=== PATIENT | female | born 1980 | race African-American/Black ===

== ENCOUNTER 2019-05-06 12:28 | Emergency (ER) | payer OTHER, SELFPAY ==
[2019-05-06 12:37] VITALS: BP 114/69; PULSE 77; RESP 18; TEMP 37.1; O2SAT 100
--- NOTE | 2019-05-06 12:47 | ED.GENADULT ---
HPI - General Adult General Chief complaint: Upper Respiratory Infection Stated complaint: Sore throat Time Seen by Provider: 05/06/19 12:48 Source: patient Mode of arrival: ambulatory Limitations: no limitations History of Present Illness HPI narrative: 38-year-old female patient presents to the [facility] with complaints of a sore throat that started today. Patient states she did have a little bit of nausea that started yesterday. Patient denies any fevers, ear pain, runny nose or stuffy nose. Denies any coughing, chest pain, shortness of breath, abdominal pain or diarrhea. Patient denies any vomiting. Patient states that she did share a soda with 1 of her friends yesterday at work and her friend did come up positive for strep today. Patient states that since she started having sore throat suddenly today she wanted to come in and get tested. Related Data Home Medications Medication Instructions Recorded Confirmed norethindrone acetate [Aygestin] 5 mg DAILY 05/06/19 05/06/19 Allergies Allergy/AdvReac Type Severity Reaction Status Date / Time No Known Allergies Allergy Unknown Unverified 05/06/19 12:52 Review of Systems Review of Systems: Narrative: CONSTITUTIONAL: Denies fever, chills, or sweats. EYES: Denies visual changes, redness, or discharge. ENT: Denies rhinorrhea, congestion, positive sore throat, denies otalgia. CARDIOVASCULAR: Denies chest pain, palpitations, or edema. RESPIRATORY: Denies cough or dyspnea. GASTROINTESTINAL: Denies abdominal pain, nausea, vomiting, or diarrhea. GENITOURINARY: Denies dysuria or hematuria. SKIN: Denies rash or itching. MUSCULOSKELETAL: Denies back pain, joint pain, or myalgia. NEUROLOGIC: Denies headache, numbness, or weakness. PSYCHIATRIC: Denies anxiety or depression. PMFSH Social History Social History Gender identity (if verbalized by the patient): Female Comments At the time of my signature I agree with nursing past medical history, surgical, social, and family history. There is no relevant family history pertinent to the presenting complaint. Exam Narrative: Exam Narrative: GENERAL: Well-appearing, well-nourished, and in no acute distress. HEAD: Normocephalic, atraumatic. EYES: PERRLA and EOMI. ENT: Nares clear, no rhinorrhea or epistaxis. Mucous membranes moist. Posterior pharynx with slight erythema but no tonsil enlargement no exudates or lesions present. Bilateral TMs are clear with no erythema or foreign bodies in the canal. NECK: Supple. No lymphadenopathy CHEST: Clear to auscultation. No respiratory distress. HEART: Regular rate and rhythm. No murmur heard. Normal peripheral pulses. ABDOMEN: Soft, nontender, nondistended, normal active bowel sounds. EXTREMITIES: Normal range of motion. No edema. SKIN: Warm, dry, no rash. NEURO: No focal deficits. Alert and oriented x3. Course Reevaluation(s) Reevaluation #1: Notify patient she is negative today for strep. Discussed with her that she can continue treating her symptoms with warm salt water gargles, hot tea and honey may take Tylenol ibuprofen as needed for the pain. Discussed with patient that we will send her throat swab off to the lab for further testing if it does come back positive in the next day or [address] call and place her on antibiotics at that time. Patient verbalized understanding denies any other questions or concerns at this time. Date: 05/06/19 Time: 12:58 Vital Signs Vital signs: Vital signs reviewed. Medical Decision Making Differential Diagnosis Differential Diagnosis: Differential diagnosis: Viral pharyngitis, pharyngitis, group A strep, infectious mononucleosis, gonococcal pharyngitis, exudative pharyngitis, oral candidiasis. Chronic allergies, postnasal drip, GERD, abscess formation, but glottitis, retropharyngeal abscess formation, or airway obstruction. May care for patient is to go ahead and swab her for strep today. I will
== END 2019-05-06 13:00 | disposition home or self-care (01) ==
PROVIDERS: Emergency Provider Nurse Practitioner Family
DX: J02.9 Acute pharyngitis, unspecified (principal)
CPT/HCPCS: 87081; 87880; 99213; G0463

== ENCOUNTER 2019-08-25 10:28 | Outpatient (CLI) | payer OTHER, SELFPAY ==
--- NOTE | ~2019-08-25 | MM_ITS ---
EXAMINATION: MM screening willian BI w alfred HISTORY: Screening mammogram TECHNIQUE: Craniocaudal and mediolateral oblique 3-D tomosynthesis images were obtained and synthetic 2-D images were generated. Bilateral rotated lateral cc views. ....CAD analysis was submitted and in terpreted. COMPARISON: 07/12/2014 bilateral digital screening mammogram BREAST PARENCHYMAL COMPOSITION: The breasts are heterogeneously dense, which may obscure small masses . FINDINGS: There is no evidence of suspicious mass, calcification, or architectural distortion to sugg est malignancy in either breast. There has been no suspicious interval change. IMPRESSION: 1. No mammographic evidence of malignancy. 2. Recommend routine screening mammography in one year. BI-RADS Category 1: Negative Reviewed, dictated and finalized at location A.
== END 2019-08-25 10:29 | disposition home or self-care (01) ==
PROVIDERS: Visit Provider Obstetrics & Gynecology
DX: Z12.31 Encounter for screening mammogram for malignant neoplasm of breast (principal)
CPT/HCPCS: 77063; 77067

== ENCOUNTER 2020-05-02 17:00 | Outpatient (RCR) | payer OTHER, SELFPAY ==
--- NOTE | 2020-04-02 14:53 | PTOPEVAL ---
PHYSICAL THERAPY EVALUATION Thank you for referring Gee Solorio to [facility].? Gee was evaluated for the diagnosis of left leg radiculopathy. The patient is scheduled to be seen for therapy?2x/week for 4 weeks. Please review, sign, date and return this plan of care VANI. I agree with and certify that the following plan of care is medically necessary. Referring Physician Date Attending Provider: Christiane Duckworth, *PT Outpatient Evaluation Start: 04/02/20 13:17 Freq: Status: Active Protocol: Document 04/02/20 13:30 MLV (Rec: 04/02/20 14:42 MLV [id number]) Assessment Status Evaluation Evaluation Information Problem Diagnosis left leg radicular pain/ sciatica Onset January 2020 Cause excessive sitting at different job Additional Evaluation Detail Patient had pain for about 1-2 years back in 2014, never treated and pain went away on its own. The patient has had no treatment for problem. The patient began with pain again in December and now unable to sleep or sit correctly. 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 The pain is at the back of her left leg and is severe. The patient cannot lay with her leg straight and cannot sit straight in a chair. The patient has gained about 14lbs in less than a year. The patient has little to no back pain with leg pain. Pain Assessment Timing of Pain Assessment Assessment Pain Scale Pain Scale Used Numeric (1 - 10) Self Report Pain Assessment Left Leg(s) Reported Pain Level 2 Pain Description Sharp,Shooting Radicular Pain Location posterior leg to calf Pain Frequency Acute Greatest Pain Intensity 10 Pain Aggravating Factors Prolonged Position,Sitting, Supine Pain Score Pain Score 2: Self Report Interventions Used Interventions Used By Clinicians Education,Electrical Stimulation,Exercise,Heat Pain Relief Interventions Used By Position Change Patient Cervical and Lumbar ROM Lumbar ROM Reason Not Measured WNL/Left,WNL/Right
--- NOTE | 2020-04-12 11:15 | PCPTNOTE ---
Patient did not show up for scheduled appointment this date. Called and spoke to patient, she stated she couldn't fine her schedule and might call and forgot.
--- NOTE | 2020-04-25 10:17 | PCPTNOTE ---
Pt called and canceled appointment this date due to being called into work. Will continue per POC.
--- NOTE | 2020-04-30 09:56 | PCPTNOTE ---
Pt no-showed for appointment today at 9:30 am. Called Pt, Pt answered and stated she forgot about appointment. Reminded Pt of upcoming appointment on May 02 at 17:00.
--- NOTE | 2020-05-02 17:43 | PTOPEVAL ---
PHYSICAL THERAPY DISCHARGE SUMMARY Thank you for referring Gee Solorio to [facility].? The patient has been seen 7 visits for the dx of LBP/left leg radiculopathy. Goals have been met-D/C PT. Please review, sign, date and return this plan of care. I agree with and certify that the following plan of care is medically necessary. Referring Physician Date Attending Provider: Christaine Duckworth, *PT Outpatient Discharge Start: 04/02/20 13:17 Freq: Status: Active Protocol: Document 05/02/20 16:54 MLV (Rec: 05/02/20 17:40 MLV [id number]) Assessment Status Discharge Outpatient Past Medical History Past Medical History No Past Medical/Surgical History Patient/Family Denies Significant Past Medical/ Surgical History Source of Past Medical History Patient Evaluation Information Problem Diagnosis left leg radicular pain/ sciatica Onset January 2020 Cause excessive sitting at different job Additional Evaluation Detail Patient reports more than 50% better with left leg pain for frequency and currently does not have leg pain. Patient reports sitting is what aggravates the pain. Patient reports no pain with HEP. The back pain occurs with standing activities and sitting relieves the pain. The patient uses heat for relief at home. Pain Assessment Timing of Pain Assessment Timing of Pain Assessment Assessment Pain Scale Pain Scale Used Numeric (1 - 10) Self Report Pain Assessment Left Leg(s) Reported Pain Level 0 Pain Score Pain Score 0: Self Report Palpation Assessment Palpation Palpation tightness improved 50-75% for back and buttocks Special Test-Spine Lumbar Spine Special Tests Straight Leg Raise Test Negative Right,Negative Left PT Clinical Summary Mrs. Sloorio has been seen 6 visits for progressive exercises and modalities. The patient has improved in all aspects of therapy with goals met. The patient is I with continuing exercises and heat at home for pain management. No further skilled PT needed
== END 2020-05-03 08:54 | disposition home or self-care (01) ==
LOC: ANHPT 17:00
PROVIDERS: PCP Family Medicine; Visit Provider Family Medicine
DX: M54.32 Sciatica, left side (principal)
CPT/HCPCS: 97014; 97110; 97140; 97161; G0283

== ENCOUNTER 2020-09-16 09:22 | Emergency (ER) | payer OTHER, SELFPAY ==
--- NOTE | ~2020-09-16 | XR_ITS ---
EXAMINATION: XR chest 2V DATE: 09/16/2020 10:03 INDICATION: Productive cough TECHNIQUE: PA and lateral views of the chest are obtained. COMPARISON: None available FINDINGS: The lungs are free of acute opacities. There is no pleural effusion or pneumothorax. The ca rdiomediastinal silhouette is normal. The visualized bones and soft tissues are unremarkable. IMPRESSION: 1. No acute cardiopulmonary abnormality. Reviewed, dictated and finalized at location A.
[2020-09-16 09:32] VITALS: BP 135/84; PULSE 86; RESP 16; TEMP 37.2; O2SAT 100
--- NOTE | 2020-09-16 09:36 | ED.GENADULT ---
HPI - General Adult General Chief complaint: Upper Respiratory Infection Stated complaint: congestion/cough Time Seen by Provider: 09/16/20 09:33 Source: patient and RN notes reviewed Mode of arrival: ambulatory Limitations: no limitations History of Present Illness HPI narrative: 40-year-old -Burm[place] female presents with complaints of cough, chest congestion, and upper respiratory infection symptoms for the past 3 days. ?Gee reports increasing symptoms daily with a NEGATIVE COVID-19 test on Thursday09/14/2020. ?Mucinex last taken on Thursday, September 15, 2020 without relief. ?Constant dry cough. ?Rhinorrhea and nasal congestion. ?Denies sore throat. ?No high fevers, drooling, neck or throat swelling. No chest pain, wheezing, or shortness of breath. ?Denies nausea, vomiting, and abdominal pain. ?Tolerating liquids well. LMP unknown due to control. Remains active. ?The patient reports she was diagnosed with COVID-20 March 2020. ?The patient reports she is not waiting for the results of a COVID-19 lab test. ?The patient reports she does not have weakness, fatigue, or myalgia. ?The patient reports he does not have any loss of taste, and diarrhea. Denies recent traveling. ?Denies concerns for COVID-19 or exposures. ?At this time, the patient is not suspected of having COVID-19. Some parts of this dictation were generated by voice recognition software and may contain typographical and/or grammatical inaccuracies. Related Data Home Medications Medication Instructions Recorded Confirmed norethindrone acetate 1 mg PO DAILY 09/16/20 09/16/20 Allergies Allergy/AdvReac Type Severity Reaction Status Date / Time No Known Allergies Allergy Verified 09/16/20 09:50 Review of Systems Review of Systems: Narrative: CONSTITUTIONAL: Denies fever, sweats, chills, fatigue. EYES: Denies visual changes, redness, discharge. ENT: Complains of congestion, rhinorrhea. Denies sore throat, otalgia. CARDIOVASCULAR: Denies chest pain, palpitations, edema. RESPIRATORY: Denies dyspnea, wheezing. Complains of cough, chest congestion. GASTROINTESTINAL: Denies abdominal pain, nausea, vomiting, diarrhea. GENITOURINARY: Denies dysuria, hematuria, abnormal discharge. SKIN: Denies rash or itching. MUSCULOSKELETAL: Denies acute back pain, joint pain, or myalgia. NEUROLOGIC: Denies numbness or focal weakness. PSYCHIATRIC: Denies anxiety or depression. [facility] Past Medical History Medical History (Updated 09/17/20 @ 00:01 by Ciro Tim) delivery delivered COVID-20 March 2000 Smoker Tumor Benign on neck Uterine fibroid Surgical History Surgical History (Updated 09/16/20 @ 10:07 by JOSE Duran) H/O section History of surgical removal of skin lesion Keloid removal related to , Tumor removed neck Family History Family History (Updated 09/16/20 @ 10:07 by JOSE Duran) Father Alive and well Mother Lung cancer Social History Social History (Updated 09/16/20 @ 10:08 by JOSE Duran) Years smoked: 20 Smoking status: Current every day smoker Tobacco type: cigarettes Second hand tobacco smoke exposure: No Alcohol intake: current Substance use: current Substance use type: crack/cocaine Living arrangements: with family Occupation/Education: occupation Gender identity (if verbalized by the patient): Female Sexual Orientation (if Verbalized by the Patient): Straight or Heterosexual Comments At time of signature, agree with the nurse past medical, surgical, social, and family history. There is no relevant family history pertinent to the presenting complaint. Exam Narrative: Exam Narrative: GENERAL: This is a well-nourished, well-developed patient, in no apparent distress. Talks in full sentences and ambulates with steady gait without dyspnea. HEAD: Normocephalic, atraumatic. EYES: PERRL. Sclera clear/white. Vision is grossly int
== END 2020-09-16 10:19 | disposition home or self-care (01) ==
PROVIDERS: Emergency Provider Nurse Practitioner Family
DX: J40 Bronchitis, not specified as acute or chronic (principal); F17.210 Nicotine dependence, cigarettes, uncomplicated; Z86.16 Personal history of COVID-19
CPT/HCPCS: 71046; 99213; G0463

== ENCOUNTER 2020-10-25 11:57 | Emergency (ER) | payer OTHER, SELFPAY ==
--- NOTE | ~2020-10-25 | XR_ITS ---
EXAMINATION: XR abdomen obstructive series DATE: 10/25/2020 14:08 INDICATION: Right abdominal pain. Constipation. TECHNIQUE: Upright and supine views of the abdomen on 3 radiographs were obtained. COMPARISON: CT abdomen and pelvis 05/14/2016 FINDINGS: There are no dilated loops of bowel. There is a moderate volume of stool in the colon. Calc ified uterine fibroids are noted. Calcifications in right pelvis are likely phleboliths. IMPRESSION: 1. Nonobstructive bowel gas pattern. 2. Uterine fibroids. Reviewed, dictated and finalized at location A.
--- NOTE | ~2020-10-25 | CT_ITS ---
EXAMINATION: CT abdomen pelvis w con EXAM DATE: 10/25/2020 15:13 INDICATION: Right lower quadrant pain. Groin pain. TECHNIQUE: Spiral CT of the abdomen and pelvis was performed following intravenous injection of 100 m L Omnipaque 350. Axial, coronal and sagittal images of the abdomen and pelvis were reviewed. The do se-length product (DLP) for this examination was 623.39 mGy-cm. The exposure was tailored according to patient size (auto mA exposure control), and iterative reconstruction (ASIR) was used as additiona l dose reduction technique. Comparison is made to prior examination from 05/14/2016. FINDINGS: The liver, spleen, adrenal glands and pancreas are unremarkable. Gallbladder is unremarkab le. No biliary obstruction. Portal and splenic veins are patent. Kidneys enhance symmetrically. T here is no hydronephrosis. Enlarged uterus with multiple calcified fibroids. The bladder is unrema rkable. There is no retroperitoneal or pelvic lymphadenopathy. The appendix is normal. The stomach and small bowel are unremarkable. There is expected amount of c olonic stool. No free intraperitoneal gas. The heart is normal in size. There are no pericardial or pleural effusions. The lung bases are unremarkable. The bones are unremarkable. IMPRESSION: 1. Fibroid uterus. 2. Normal appendix. Reviewed, dictated and finalized at location A.
[2020-10-25 12:06] VITALS: BP 133/78; PULSE 106; RESP 18; TEMP 36.8; O2SAT 97
[2020-10-25 12:27] LABS: Basophils Percent Auto 0.7 % (0.2-1.2); Eosinophils Absolute Auto 0.2 K/mm3 (0-0.3); Eosinophils Percent Auto 3.6 % (0-4.4); Hematocrit 43.5 % (37.0-47.0); Hemoglobin 14.3 g/dL (12.0-15.0); Immature Granulocyte Absolute 0.01 K/mm3 (0.00-0.031); Immature Granulocyte Percent A 0.2 % (0-0.5); Lymphocytes Absolute Auto 1.93 K/mm3 (0.9-3.2); Lymphocytes Percent Auto 33.2 % (18.3-44.2); Mean Corpuscular HGB Conc 32.9 g/dl (32-36); Mean Corpuscular Hemoglobin 30.5 pg (26-34); Mean Corpuscular Volume 92.8 fl (80-100); Mean Platelet Volume 9.9 fl (7.4-10.4); Monocytes Absolute Auto 0.4 K/mm3 (0.1-0.6); Monocytes Percent Auto 6.5 % (2.6-8.5); Neutrophils Absolute Auto 3.3 K/mm3 (1.3-6.7); Neutrophils Percent Auto 55.8 % (45.5-73.1); Platelet Count Result 314 k/mm3 (150-375); Red Blood Count 4.69 M/mm3 (4.2-5.4); Red Cell Distribution Width 11.9 % (11.5-14.5); White Blood Count 5.8 K/mm3 (4.5-10.0)
[2020-10-25 12:37] LABS: Anion Gap 11 mmol/L (8-16); Blood Urea Nitrogen 15 mg/dL (7-17); Calcium 10.2 mg/dL (8.4-10.2); Carbon Dioxide 25 mmol/L (22-30); Chloride 100 mmol/L (98-107); Estimated CRCL calculation 84 ml/min; Estimated Glomerular Filt Rate > 60; Glucose 142 mg/dL (65-110); Potassium 3.7 mmol/L (3.4-5.0); Sodium 136 mmol/L (137-145)
[2020-10-25 14:36] LABS: Add Urine Microscopic? YES; Appearance Urine Clear (Clear); Bilirubin Urine Negative (Negative); Blood Urine 1+ (Negative); Color Urine Yellow (Yellow); Glucose Urine UA Negative (Negative); Ketones Urine Negative (Negative); Leukocyte Esterase Ur Negative LEU/UL (Negative); Mucus Urine Rare /lpf; Nitrate Urine Negative (Negative); Protein Urine Negative (Negative); Squamous Epithelial Cell Urine Rare /hpf (Few); WBC Urine 0-3 /hpf
--- NOTE | 2020-10-25 15:00 | ED.GENADULT ---
HPI - General Adult General Chief complaint: Back Pain/Injury Stated complaint: Possible Kidney Stone Time Seen by Provider: 10/25/20 13:11 Source: patient Mode of arrival: ambulatory Limitations: no limitations History of Present Illness HPI narrative: 40 years old -Niue[place] female presented to the ED with right abdominal pain, radiating to right flank area started 2 to 3 days ago, getting worse. Sharp, spasm, increased with certain position, get better with certain movement and position. Last bowel movement 3 days ago, history of uterine fibroid. Patient denies any fever, chills, nausea, vomiting, diarrhea, urinary symptoms. Patient is not vaccinated for COVID-19. Patient denies any chest pain or shortness of breath. Related Data Home Medications Medication Instructions Recorded Confirmed norethindrone acetate 1 mg PO DAILY 09/16/20 09/16/20 cabergoline 0.5 mg 2XW 10/25/20 metformin mg 10/25/20 penicillin V potassium 10/25/20 Allergies Allergy/AdvReac Type Severity Reaction Status Date / Time No Known Allergies Allergy Verified 10/25/20 12:41 Review of Systems Review of Systems: CONSTITUTIONAL: Denies fever, chills, or sweats. EYES: Denies visual changes, redness, or discharge. ENT: Denies rhinorrhea, congestion, sore throat, or otalgia. CARDIOVASCULAR: Denies chest pain, palpitations, or edema. RESPIRATORY: Denies cough or dyspnea. GASTROINTESTINAL: Denies abdominal pain, nausea, vomiting, or diarrhea. GENITOURINARY: Denies dysuria or hematuria. SKIN: Denies rash or itching. MUSCULOSKELETAL: Denies back pain, joint pain, or myalgia. NEUROLOGIC: Denies headache, numbness, or weakness. PSYCHIATRIC: Denies anxiety or depression. [facility] Past Medical History Medical History delivery delivered COVID-20 March 2000 Smoker Tumor Benign on neck Uterine fibroid Surgical History Surgical History H/O section History of surgical removal of skin lesion Keloid removal related to , Tumor removed neck Family History Family History Father Alive and well Mother Lung cancer Social History Social History Years smoked: 20 Smoking status: Current every day smoker Tobacco type: cigarettes Second hand tobacco smoke exposure: No Alcohol intake: current Substance use: current Substance use type: crack/cocaine Gender identity (if verbalized by the patient): Female Exam Narrative: General appearance: Well-developed, well-nourished Skin: Normal color Head: Normocephalic, nontraumatic Eyes: Clear conjunctiva ENT: Oropharynx normal, ears normal, nose normal Neck: Supple, nontender Chest and respiratory: Airway patent, no respiratory distress, no accessory muscle use Heart: Regular rate/rhythm Abdomen: Severe tenderness right lower quadrant, slight guarding, quiet bowel sounds Vascular: Normal peripheral pulses, normal capillary refill. Musculoskeletal: Diffuse tenderness mid lumbar area, no bruises, no rash, slight limited range of motion. Neurologic: Alert and oriented ?3, [employer] is normal as tested, no gross motor deficit Course Course Emergency Course: Stable Vital Signs Vital signs: Vital Signs Temperature 36.8 C 10/25/20 12:06 Pulse Rate 106 H 10/25/20 12:06 Respiratory Rate 18 10/25/20 12:06 Blood Pressure 133/78 10/25/20 12:06 Pulse Oximetry 97 10/25/20 12:06 Temperature 36.8 C 10/25/20 12:06 Pulse Rate 106 H 10/25/20 12:06 Respiratory R
[2020-10-25 15:13] LABS: Specific Grav Ur 1.034 (1.001-1.035)
[2020-10-25] MEDS: SODIUM CHLORIDE 0.9% IV 1,000 ML 999 ML IV CONT (15:25)
[2020-10-25] MEDS: ONDANSETRON INJ 4 MG/2 ML VIAL IV PUSH (15:25)
[2020-10-25] MEDS: MORPHINE SULFATE (*CRX) 4 MG/ML INJ IV PUSH (15:25)
== END 2020-10-25 16:09 | disposition home or self-care (01) ==
PROVIDERS: Emergency Provider Emergency Medicine
DX: M54.5 Low back pain (principal); D25.9 Leiomyoma of uterus, unspecified; Z79.84 Long term (current) use of oral hypoglycemic drugs; F17.210 Nicotine dependence, cigarettes, uncomplicated; R73.03 Prediabetes; Z86.16 Personal history of COVID-19
CPT/HCPCS: 36415; 74019; 74177; 80048; 81001; 81025; 85025; 96361; 96374; 96375; 99284; J2270; J2405; J7030; Q9967

== ENCOUNTER 2020-11-12 08:25 | Emergency (ER) | payer OTHER, SELFPAY ==
[2020-11-12 08:39] VITALS: BP 110/72; PULSE 68; RESP 16; TEMP 36.2; O2SAT 100
--- NOTE | 2020-11-12 09:21 | ED.GENADULT ---
HPI - General Adult General Chief complaint: Back Pain/Injury Stated complaint: Shoulder blade Pain Time Seen by Provider: 11/12/20 09:20 Source: patient and RN notes reviewed Mode of arrival: ambulatory Limitations: no limitations History of Present Illness HPI narrative: 40-year-old female presents with concern for pain next to the right shoulder blade that started after she woke up this morning. Reports the pain worsens with taking a deep breath or coughing. Reports being able to feel the pain when she stretches her right arm. She denies any direct injury or trauma recently. Reports she does heavy lifting at work. Reports she also has started a new workout routine recently. She denies chest pain, shortness of breath, cough. Denies recent upper respiratory infection. She denies rash or redness. She was recently seen in the emergency room for bilateral lower back pain and had negative abdominal and pelvic CT scans. She denies intervention. MD complaint: Shoulder blade pain Related Data Home Medications Medication Instructions Recorded Confirmed norethindrone acetate 1 mg PO DAILY 09/16/20 11/12/20 cabergoline 0.5 mg PO 2XW 10/25/20 11/12/20 metformin 500 mg PO DIRECTED 10/25/20 11/12/20 atorvastatin 20 mg PO DAILY 11/12/20 11/12/20 calcium carbonate-vitamin D3 1 tablet PO DAILY 11/12/20 11/12/20 ferrous gluconate 324 mg PO DAILY 11/12/20 11/12/20 multivitamin with folic acid 1 tablet PO DAILY 11/12/20 11/12/20 [Tab-A-Keshia] Allergies Allergy/AdvReac Type Severity Reaction Status Date / Time No Known Allergies Allergy Verified 11/12/20 09:09 Review of Systems Review of Systems: CONSTITUTIONAL: Denies malaise, chills, sweats, or fever. ENT: Denies rhinorrhea, congestion, sinus pain, otalgia or sore throat. CARDIOVASCULAR: Denies chest pain, palpitations, or edema. RESPIRATORY: Denies cough or dyspnea. GASTROINTESTINAL: Denies abdominal pain, nausea, vomiting, diarrhea SKIN: Denies rash or itching, redness, bruising. MUSCULOSKELETAL: Denies back pain or myalgia. Reports pain near the right shoulder blade NEUROLOGIC: Denies numbness, weakness. All systems reviewed & are unremarkable except as noted in HPI and below PMFSH Past Medical History Medical History delivery delivered COVID-20 March 2000 Smoker Tumor Benign on neck Uterine fibroid Surgical History Surgical History H/O section History of surgical removal of skin lesion Keloid removal related to , Tumor removed neck Family History Family History Father Alive and well Mother Lung cancer Social History Social History Years smoked: 20 Smoking status: Current every day smoker Tobacco type: cigarettes Second hand tobacco smoke exposure: No Alcohol intake: current Substance use: current Substance use type: crack/cocaine Gender identity (if verbalized by the patient): Female Sexual Orientation (if Verbalized by the Patient): Straight or Heterosexual Comments At time of signature, agree with nursing past medical, surgical, social and family history. There is no relevant family history pertinent to the presenting complaint Exam Narrative: GENERAL: Well-appearing, well-nourished, and in no acute distress. HEAD: Normocephalic, atraumatic. EYES: PERRLA, conjunctivae clear ENT: Mucous membranes moist. NECK: Supple. No cervical tenderness CHEST: No respiratory distress. Clear to auscultation. No bony deformities, no asymmetry. Speaks in full sentences. HEART: Regular rate and rhythm. No murmur heard. EXTREMITIES: Right upper arm has grossly normal range of motion, no edema, normal strength and sensation. No tenderness to palpation of the painful area on the shoulder blade, patient r
== END 2020-11-12 09:32 | disposition home or self-care (01) ==
PROVIDERS: Emergency Provider Nurse Practitioner
DX: M25.511 Pain in right shoulder (principal); F17.210 Nicotine dependence, cigarettes, uncomplicated; Z86.16 Personal history of COVID-19
CPT/HCPCS: 99212; G0463

== ENCOUNTER 2021-04-13 15:48 | Emergency (ER) | payer OTHER, SELFPAY ==
[2021-04-13 15:54] VITALS: BP 148/88; PULSE 78; RESP 18; TEMP 36.6; O2SAT 99
--- NOTE | 2021-04-13 16:26 | ED.GENADULT ---
HPI - General Adult General Chief complaint: Extremity Injury, Lower Stated complaint: left leg pain Time Seen by Provider: 04/13/21 15:52 Source: RN notes reviewed History of Present Illness HPI narrative: Patient presents emergency department from home for left leg pain. Patient states symptoms been ongoing and progressively worsening over the past 1 week the pain starts in the left buttocks and shoots down into the left calf described as sharp and stabbing patient states that no position seems to make the pain better or worse states she has tried taking ibuprofen at home with last dose this morning with minimal relief she does have a history of sciatica she has any fevers or chills bowel or bladder incontinence numbness or weakness of the extremity or any other symptoms Related Data Home Medications Medication Instructions Recorded Confirmed norethindrone acetate 1 mg PO DAILY 09/16/20 11/12/20 cabergoline 0.5 mg PO 2XW 10/25/20 11/12/20 metformin 500 mg PO DIRECTED 10/25/20 11/12/20 atorvastatin 20 mg PO DAILY 11/12/20 11/12/20 calcium carbonate-vitamin D3 1 tablet PO DAILY 11/12/20 11/12/20 ferrous gluconate 324 mg PO DAILY 11/12/20 11/12/20 multivitamin with folic acid 1 tablet PO DAILY 11/12/20 11/12/20 [Tab-A-Keshia] Allergies Allergy/AdvReac Type Severity Reaction Status Date / Time No Known Allergies Allergy Verified 11/12/20 09:09 Review of Systems Review of Systems: Gen.: Denies fevers or chills ENT: Denies congestion Respiratory: Denies shortness of breath CV: Denies chest pain GI: Denies abdominal pain nausea, emesis or diarrhea denies bladder incontinence Musculoskeletal: See HPI Neuro: Denies numbness, tingling, weakness or focal weakness Skin: Denies rash Except as documented, all other systems reviewed and negative PMFSH Past Medical History Medical History delivery delivered COVID-20 March 2000 Smoker Tumor Benign on neck Uterine fibroid Surgical History Surgical History H/O section History of surgical removal of skin lesion Keloid removal related to , Tumor removed neck Family History Family History Father Alive and well Mother Lung cancer Social History Social History Years smoked: 20 Smoking status: Current every day smoker Tobacco type: cigarettes Second hand tobacco smoke exposure: No Alcohol intake: current Substance use: current Substance use type: crack/cocaine Gender identity (if verbalized by the patient): Female Sexual Orientation (if Verbalized by the Patient): Straight or Heterosexual Exam Narrative: APPEARANCE: No acute distress, nontoxic, resting in bed Eyes: EOMI HEENT: Normocephalic, atraumatic, CV: Regular rate and rhythm without murmur RESPIRATORY: No respiratory distress. Clear to auscultation bilaterally. Abdomen: Soft and nontender, no rebound or guarding MUSCULOSKELETAl: Moves all extremities, no clubbing cyanosis or edema Back: No midline lumbar tenderness to palpation or step-off, tender to palpation over left piriformis region, pain increased with forward flexion NEURO: Awake and alert. Following commands, speech normal, no focal deficits, muscle strength 5 out of 5 bilateral lower extremities, bilateral patellar reflex 2+ SKIN:: Warm, dry. Normal Color no rash or lesions Course Course Emergency Course: Discussed with patient results of workup and diagnosis. Discussed need for follow-up with primary care, proper use of medication, and reasons to return to the emergency department. Patient understands and agrees to current treatment plan Vital Signs Vital signs: Vital Signs Temperature 97.8 F 04/13/21 15:54 Pulse Rate 78 04/13/21 15:54 Respiratory Rate 18 0
[2021-04-13] MEDS: IBUPROFEN 600 MG TABLET PO (16:30)
[2021-04-13] MEDS: predniSONE 20 MG TABLET 60 MG PO (16:30)
== END 2021-04-13 16:45 | disposition home or self-care (01) ==
PROVIDERS: Emergency Provider Emergency Medicine
DX: M54.32 Sciatica, left side (principal); Z79.84 Long term (current) use of oral hypoglycemic drugs; Z86.16 Personal history of COVID-19; F17.210 Nicotine dependence, cigarettes, uncomplicated
CPT/HCPCS: 99283; A9270; J7512

== ENCOUNTER 2022-03-04 15:27 | Emergency (ER) | payer OTHER, SELFPAY ==
[2022-03-04 15:35] VITALS: BP 120/78; PULSE 96; RESP 16; TEMP 36.6; O2SAT 100
[2022-03-04 15:41] VITALS: BP 120/78; PULSE 96; RESP 16; TEMP 36.6; O2SAT 100
--- NOTE | 2022-03-04 16:07 | ED.UPPEXIN ---
HPI - Extremity Injury (Upper) General Chief Complaint: Extremity Injury, Upper Stated Complaint: sore throat; left wrist pain Time Seen by Provider: 03/04/22 15:50 Source: patient Mode of arrival: ambulatory Limitations: no limitations History of Present Illness HPI narrative: Ms. Solorio is a 41-year-old female patient presenting to the clinic today with complaints of sore throat and left wrist pain. She reports that the sore throats been going on for 2 days. She works at [employer] and does repetitive motions of the left wrist. She has had history of carpal tunnel surgery on the right wrist. Has pain over the left radial wrist and numbness and tingling in the left hand Related Data Home Medications Medication Instructions Recorded Confirmed [id number]-fmwovz-spuvsjxp 300-1-0.5 1 cap PO DAILY 03/04/22 03/04/22 mg(AM)/elagolix 300 mg(PM) capsules ([facility]) Allergies Allergy/AdvReac Type Severity Reaction Status Date / Time No Known Allergies Allergy Verified 03/04/22 15:39 Review of Systems Review of Systems: Pertinent positives per HPI. Patient denies any fever, chills, rash, headache, visual changes, dizziness, cough, shortness of breath, chest pain, palpitations, nausea, vomiting, diarrhea, constipation, abdominal pain, or any urinary issues. [facility] Past Medical History Medical History delivery delivered COVID-20 March 2000 Smoker Tumor Benign on neck Uterine fibroid Surgical History Surgical History H/O section History of surgical removal of skin lesion Keloid removal related to , Tumor removed neck Family History Family History Father Alive and well Mother Lung cancer Social History Social History Years smoked: 20 Smoking status: Current every day smoker Tobacco type: cigarettes Second hand tobacco smoke exposure: No Alcohol intake: current Substance use: current Substance use type: crack/cocaine Gender identity (if verbalized by the patient): Female Sexual Orientation (if Verbalized by the Patient): Straight or Heterosexual Comments At the time of my signature, I reviewed and agree with the nursing past medical, surgical, social, and family history. There is no relevant family history pertinent to the patient complaint. Exam Narrative: General: Well-developed, well nourished, in no apparent distress Head: Normocephalic, atraumatic Eyes: Pupils equally round and reactive to light bilaterally, EOM intact, sclera and conjunctive clear, no discharge, lids normal Ears: TMs intact and clear, ear canals clear, no drainage, grossly hearing normal. Nose: Nares patent, clear nasal discharge, no inflammation, no sinus tenderness. Mouth: Oral pharynx without lesions or masses, good dentition, MMM. oropharynx red with bilateral tonsil swelling Neck: Supple, trachea midline, enlargement of anterior cervical nodes, no thyroid masses or goiter palpable. Cardio: Regular rate and rhythm, s1 and s2 normal, no murmur appreciated. Resp: Clear to auscultation bilaterally, no rhonchi, rales, wheezing or rubs Musculoskeletal: No deformity, tenderness to palpation of the left radial wrist, positive Phalen's and positive Tinel sign to the left wrist, pain with flexion and extension to the left wrist, grossly normal range of motion, bilateral hand grasp strong and equal, muscle strength strong and equal, peripheral pulse strong, no edema, no cyanosis, normal gait and station Course Course Emergency Course: Portions of this record may have been created with voice recognition software. Level of Care: Express Care Visit Vital Signs Vital signs: Vital Signs Temperature 36.6 C 03/04/22 15:3
== END 2022-03-04 16:18 | disposition home or self-care (01) ==
PROVIDERS: Emergency Provider Nurse Practitioner Family
DX: G56.02 Carpal tunnel syndrome, left upper limb (principal); J02.9 Acute pharyngitis, unspecified; F17.210 Nicotine dependence, cigarettes, uncomplicated; Z86.16 Personal history of COVID-19
CPT/HCPCS: 87081; 87880; 99213; G0463

== ENCOUNTER 2022-07-08 12:14 | Emergency (ER) | payer OTHER, SELFPAY ==
--- NOTE | 2022-07-08 12:22 | ED.GENADULT ---
HPI - General Adult General Chief complaint: Dizziness Stated complaint: Dizziness/Blurred vision Time Seen by Provider: 07/08/22 12:26 Source: patient, RN notes reviewed and old records reviewed Mode of arrival: ambulatory Limitations: no limitations History of Present Illness HPI narrative: 42-year-old female presents to the [facility] with 24 hours of dizziness, blurry vision, left-sided chest pain radiating into the left neck. Has history of anemia and diabetes. States nothing makes it better or worse. Has a history of similar symptoms but states it has never lasted this long. Onset (ago): day(s) (1) Related Data Home Medications Medication Instructions Recorded Confirmed [id number]-holfau-nscqyohl 300-1-0.5 1 cap PO DAILY 03/04/22 03/04/22 mg(AM)/elagolix 300 mg(PM) capsules ([facility]) metformin 500 mg tablet mg 07/08/22 Allergies Allergy/AdvReac Type Severity Reaction Status Date / Time No Known Allergies Allergy Verified 07/08/22 13:07 Review of Systems Review of Systems: All systems reviewed & are unremarkable except as noted in HPI and below Constitutional: Constitutional: Reports no additional constitutional complaints Eyes: Eyes: Reports as per HPI and Reports blurry vision ENT: Reports system reviewed and no additional complaints, except as documented Cardiovascular: Cardiovascular: Reports as per HPI, Reports chest pain and Denies dyspnea Respiratory: Respiratory: Reports no additional respiratory complaints, Denies chest congestion, Denies cough and Denies dyspnea Gastrointestinal: Gastrointestinal: Reports no additional gastrointestinal complaints, Denies abdominal pain, Denies nausea and Denies vomiting Musculoskeletal: Musculoskeletal: Reports no additional musculoskeletal complaints Integumentary/Breasts: Skin/Breast: Reports system reviewed and no additional complaints, except as docu Neurologic: Reports as per HPI and Reports dizziness Psychiatric: Psychiatric: Reports no additional psychiatric complaints Allergic/Immunologic: Allergic/Immunologic: Reports no additional allergic/immunologic complaints [facility] Past Medical History Medical History delivery delivered COVID-20 March 2000 Smoker Tumor Benign on neck Uterine fibroid Surgical History Surgical History H/O section History of surgical removal of skin lesion Keloid removal related to , Tumor removed neck Family History Family History Father Alive and well Mother Lung cancer Social History Social History Years smoked: 20 Smoking status: Current every day smoker Tobacco type: cigarettes Second hand tobacco smoke exposure: No Alcohol intake: current Substance use: current Substance use type: crack/cocaine Living arrangements: with family Occupation/Education: occupation Gender identity (if verbalized by the patient): Female Sexual Orientation (if Verbalized by the Patient): Straight or Heterosexual Comments At the time of my signature, I reviewed and agree with the nursing past medical, surgical, social, and family history. There is no relevant family history pertinent to the patient complaint. Exam Const: General: cooperative, healthy appearing, no acute distress, well developed, alert, uncomfortable, well groomed and well nourished Nutritional Appearance: well nourished Orientation/consciousness: patient oriented x3 Limitations: no limitations HENMT: Head: normal to inspection Ears: hearing grossly normal bilaterally and external ears normal Face/Nose/Sinus: Normal external nose present, Normal nares present, Normal nasal mucous membranes and turbinates present and normal facial exam Face and sinus: normal facial exam Ashley
[2022-07-08 12:23] VITALS: BP 123/81; PULSE 79; RESP 16; TEMP 36.6; O2SAT 100
[2022-07-08 12:32] LABS: Glucose Point of Care 101 mg/dl (65-105)
--- NOTE | 2022-07-08 12:35 | ECG_ITS ---
Measurements Intervals [place] Rate: 77 P: 76 RI: 183 QRS: 54 QRSD: 97 T: 30 QT: 364 QTc: 413 Interpretive Statements SINUS RHYTHM POSSIBLE LEFT ATRIAL ENLARGEMENT BORDERLINE ECG NO PREVIOUS ECG AVAILABLE FOR COMPARISON Electronically Signed On 07-08-2022 14:13:17 CDT by Dank Carey D.O.
--- NOTE | 2022-07-08 12:56 | PC.NURSE ---
1233 requested transfer to [place] [facility] via [facility]. requested to talk to sister who provided transportation here, but sister is currently being seen in another exam room for different sx. 1239 report to raymundo velarde at er. after report requested to go to er via private vehicle but said since ems is currently en route woud prefer [facility]. [address] [place] [facility] here.
== END 2022-07-08 12:47 | disposition short-term general hospital (02) ==
LOC: EXPCOLL 12:20
PROVIDERS: Emergency Provider Nurse Practitioner
DX: R42 Dizziness and giddiness (principal); H53.8 Other visual disturbances; R07.89 Other chest pain; F17.210 Nicotine dependence, cigarettes, uncomplicated; Z86.16 Personal history of COVID-19
CPT/HCPCS: 82948; 93005; 99215; G0463

== ENCOUNTER 2022-07-08 13:06 | Emergency (ER) | payer OTHER, SELFPAY ==
--- NOTE | 2022-07-08 13:10 | ECG_ITS ---
Measurements Intervals [place] Rate: 69 P: 75 NH: 190 QRS: 37 QRSD: 88 T: 8 QT: 368 QTc: 394 Interpretive Statements SINUS RHYTHM POSSIBLE LEFT ATRIAL ENLARGEMENT BORDERLINE T WAVE ABNORMALITY- ANTERIOR LEADS BASELINE ARTIFACT- I, III, AVR, AVL, V2 BORDERLINE ECG COMPARED TO ECG 07/08/2022 12:33:29 NO SIGNIFICANT CHANGES Electronically Signed On 07-08-2022 14:13:57 CDT by Dank Carey D.O.
[2022-07-08 13:11] VITALS: BP 144/86; PULSE 78; RESP 16; TEMP 36.6; O2SAT 100
[2022-07-08 13:37] LABS: Basophils Absolute Auto 0.1 K/mm3 (0.0-0.1); Basophils Percent Auto 0.7 % (0.2-1.2); Eosinophils Absolute Auto 0.3 K/mm3 (0-0.3); Eosinophils Percent Auto 4.5 % (0-4.4); Hemoglobin 14.1 g/dL (12.0-15.0); Immature Granulocyte Absolute 0.02 K/mm3 (0.00-0.031); Immature Granulocyte Percent A 0.3 % (0-0.5); Lymphocytes Absolute Auto 3.43 K/mm3 (0.9-3.2); Lymphocytes Percent Auto 45.4 % (18.3-44.2); Mean Corpuscular HGB Conc 32.8 g/dl (32-36); Mean Corpuscular Hemoglobin 30.8 pg (26-34); Mean Corpuscular Volume 93.9 fl (80-100); Mean Platelet Volume 9.6 fl (7.4-10.4); Monocytes Absolute Auto 0.5 K/mm3 (0.1-0.6); Monocytes Percent Auto 6.7 % (2.6-8.5); Neutrophils Absolute Auto 3.2 K/mm3 (1.3-6.7); Neutrophils Percent Auto 42.4 % (45.5-73.1); Platelet Count Result 303 k/mm3 (150-375); Red Blood Count 4.58 M/mm3 (4.2-5.4); Red Cell Distribution Width 12.2 % (11.5-14.5); White Blood Count 7.6 K/mm3 (4.5-10.0)
[2022-07-08 13:53] LABS: Alanine Aminotransferase 32 U/L (6-35); Albumin Level 4.6 g/dL (3.5-5.1); Alkaline Phosphatase 51 U/L (38-126); Anion Gap 7 mmol/L (8-16); Aspartate Amino Transferase 35 U/L (14-36); Bilirubin,Total 0.4 mg/dL (0.2-1.3); Blood Urea Nitrogen 14 mg/dL (7-17); Calcium 9.5 mg/dL (8.4-10.2); Carbon Dioxide 29 mmol/L (22-30); Chloride 99 mmol/L (98-107); Estimated CRCL calculation 105 ml/min; Estimated Glomerular Filt Rate > 60; Glucose 88 mg/dL (65-110); Potassium 4.2 mmol/L (3.4-5.0); Sodium 135 mmol/L (137-145)
[2022-07-08 14:01] LABS: Troponin I < 0.012 ng/mL (0.000-0.034)
[2022-07-08 14:46] VITALS: BP 114/68; PULSE 73; RESP 14; O2SAT 100
[2022-07-08 16:46] LABS: D Dimer < 0.27 ug/mL (<0.48)
--- NOTE | 2022-07-08 16:46 | ED.DIZZY ---
HPI - Dizziness General Chief Complaint: Dizziness Stated Complaint: dizzy/blurred vision Time Seen by Provider: 07/08/22 14:48 History of Present Illness HPI Narrative: This is a 42-year-old female with reported history of diabetes, who presents the emergency department with 2 episodes of lightheadedness. The patient states she was in her kitchen yesterday when she suddenly felt lightheadedness and blurred vision. This resolved after eating. Today she had a similar episode and wished to be evaluated. She was seen in urgent care and referred here for further evaluation. She denies weakness or numbness, change or loss of hearing but has had some blurred vision. Related Data Home Medications Medication Instructions Recorded Confirmed [id number]-kjscgy-louwzqbk 300-1-0.5 1 cap PO DAILY 03/04/22 03/04/22 mg(AM)/elagolix 300 mg(PM) capsules ([facility]) metformin 500 mg tablet mg 07/08/22 Allergies Allergy/AdvReac Type Severity Reaction Status Date / Time No Known Allergies Allergy Verified 07/08/22 13:07 Review of Systems Review of Systems: CONSTITUTIONAL: Denies fever, chills, or sweats. EYES: Intermittent blurred vision denies redness, or discharge. ENT: Denies rhinorrhea, congestion, sore throat, or otalgia. CARDIOVASCULAR: Denies chest pain, palpitations, or edema. RESPIRATORY: Denies cough or dyspnea. GASTROINTESTINAL: Denies abdominal pain, nausea, vomiting, or diarrhea. GENITOURINARY: Denies dysuria or hematuria. SKIN: Denies rash or itching. MUSCULOSKELETAL: Denies back pain, joint pain, or myalgia. NEUROLOGIC: Intermediate headache now resolved denies numbness, dizziness, or weakness. PSYCHIATRIC: Denies anxiety or depression. [facility] Past Medical History Medical History delivery delivered COVID-20 March 2000 Smoker Tumor Benign on neck Uterine fibroid Surgical History Surgical History H/O section History of surgical removal of skin lesion Keloid removal related to , Tumor removed neck Family History Family History Father Alive and well Mother Lung cancer Social History Social History Years smoked: 20 Smoking status: Current every day smoker Tobacco type: cigarettes Second hand tobacco smoke exposure: No Alcohol intake: current Substance use: current Substance use type: crack/cocaine Living arrangements: with family Occupation/Education: occupation Gender identity (if verbalized by the patient): Female Sexual Orientation (if Verbalized by the Patient): Straight or Heterosexual Exam Narrative: GENERAL: Well-developed, well-nourished, and in no acute distress. HEAD: Normocephalic, atraumatic. EYES: PERRLA and EOMI. No noted papilledema or retinal abnormality on funduscopic exam ENT: Nares clear, no rhinorrhea or epistaxis. Mucous membranes moist. Oropharynx without tonsillar hypertrophy exudate or other lesions. Bilateral TMs pearly martin nonbulging CHEST: Clear to auscultation. No respiratory distress. No wheezes rales or rhonchi HEART: Regular rate and rhythm. No murmur heard. Normal peripheral pulses. ABDOMEN: Soft, nontender, nondistended, normal active bowel sounds. EXTREMITIES: Normal range of motion. No edema. SKIN: Warm, dry, no rash. NEURO: No focal deficits. Alert and oriented x3. Cranial nerves II through XII intact. Strength 5/5 in all extremities, sensation intact bilaterally PSYCH: Normal mood and affect. Course Course Emergency Course: 15:28 - The patient's exam is not concerning for focal neural deficit or retinal abnormality. She also mentions chronic right lower extremity swelling that feels somewhat worse than usual. Chemistries unremarkable with glucose of 88. CBC unr
== END 2022-07-08 16:53 | disposition home or self-care (01) ==
PROVIDERS: Emergency Provider Preventive Medicine Aerospace Medicine
DX: R42 Dizziness and giddiness (principal); H53.8 Other visual disturbances; Z86.16 Personal history of COVID-19; F17.210 Nicotine dependence, cigarettes, uncomplicated; Z79.84 Long term (current) use of oral hypoglycemic drugs; R94.31 Abnormal electrocardiogram [ECG] [EKG]
CPT/HCPCS: 36415; 80053; 82948; 84484; 85025; 85380; 93005; 99284

== ENCOUNTER 2023-02-27 16:27 | Emergency (ER) | payer OTHER, SELFPAY ==
[2023-02-27 16:35] VITALS: BP 132/85; PULSE 73; RESP 18; TEMP 37.1; O2SAT 100
--- NOTE | 2023-02-27 17:35 | ED.ABDPAIN ---
HPI - Abdominal Pain General Chief Complaint: Urogenital-Female Stated Complaint: stomach pain,back pain Time Seen by Provider: 02/27/23 17:36 Source: patient and RN notes reviewed Mode of arrival: ambulatory Limitations: no limitations History of Present Illness HPI narrative: 42-year-old female presented for complaint of Low abdominal pain for 1 week. Also with urinary urgency and frequency. Reports hx chronic low back pain as well as fibroids. Pt denies current abnormal bleeding. Denies n/v/d/f/c. States NSAIDS do not usually work for her. Related Data Home Medications Medication Instructions Recorded Confirmed [id number]-zkkqfv-pkmlyses 300-1-0.5 1 cap PO DAILY 03/04/22 02/27/23 mg(AM)/elagolix 300 mg(PM) capsules ([facility]) metformin 500 mg tablet 500 mg PO DAILY 07/08/22 02/27/23 Allergies Allergy/AdvReac Type Severity Reaction Status Date / Time No Known Allergies Allergy Verified 02/27/23 17:10 Review of Systems Review of Systems: CONSTITUTIONAL: Denies body aches, fever, chills, or sweats. CARDIOVASCULAR: Denies chest pain, palpitations, or edema. RESPIRATORY: Denies cough or dyspnea. GASTROINTESTINAL: Reports abdominal pain, Denies nausea, vomiting, or diarrhea. GENITOURINARY: Reports dysuria, frequency, urgency, denies hematuria, flank pain SKIN: Denies rash, itching, or wounds. MUSCULOSKELETAL: Denies back pain or myalgia. [facility] Past Medical History Medical History delivery delivered COVID-20 March 2000 Smoker Tumor Benign on neck Uterine fibroid Surgical History Surgical History H/O section History of surgical removal of skin lesion Keloid removal related to , Tumor removed neck Family History Family History Father Alive and well Mother Lung cancer Social History Social History Years smoked: 20 Smoking status: Current every day smoker Tobacco type: cigarettes Second hand tobacco smoke exposure: No Alcohol intake: current Substance use: current Substance use type: crack/cocaine Living arrangements: with family Occupation/Education: occupation Gender identity (if verbalized by the patient): Female Sexual Orientation (if Verbalized by the Patient): Straight or Heterosexual Comments At time of signature, I have reviewed and agree with nursing past medical, surgical, social and family history unless otherwise noted. Please see nursing chart for further information. There is no relevant family history pertinent to the presenting complaint Exam Narrative: GENERAL: Well-appearing and in no acute distress. ENT: Mucous membranes pink and moist. NECK: Normal AROM. Supple. CHEST: No respiratory distress. Clear to auscultation. HEART: Regular rate and rhythm. ABDOMEN: Soft, nondistended, normal active bowel sounds. Mild tenderness with palpation across lower abdomen. No CVA tenderness MUSC: no vpt SKIN: Warm, dry, no rash. NEURO: No focal deficits. Alert and oriented x3. Gait steady. PSYCH: Normal affect. Course Course Emergency Course: Patient is aware of diagnosis, understands and agrees to treatment plan. Anticipatory guidance given. Patient agrees to follow-up as directed and is aware of reasons to seek care at the emergency department. Portions of this record may have been created with voice recognition software Level of Care: Express Care Visit Vital Signs Vital signs: Vital Signs Temperature 98.7 F 02/27/23 16:35 Pulse Rate 73 02/27/23 16:35 Respiratory Rate 18 02/27/23 16:35 Blood Pressure 132/85 02/27/23 16:35 Pulse Oximetry 100 02/27/23 16:35 Oxygen Delivery Room Air 02/27/23 16:35 Temperature 98.7 F 02/27/23 16:35 Pulse Rate 73
== END 2023-02-27 17:52 | disposition home or self-care (01) ==
PROVIDERS: Emergency Provider Nurse Practitioner Family
DX: R10.30 Lower abdominal pain, unspecified (principal); F17.210 Nicotine dependence, cigarettes, uncomplicated; Z86.16 Personal history of COVID-19
CPT/HCPCS: 81003; 87086; 87088; 99213; G0463

== ENCOUNTER 2024-04-14 14:58 | Emergency (ER) | payer OTHER, SELFPAY ==
[2024-04-14 15:20] VITALS: BP 132/88; PULSE 68; RESP 15; TEMP 36.1; O2SAT 100
--- NOTE | 2024-04-14 15:29 | ED_ITS ---
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 She reports that pain is worse with movement, better with ibuprofen. She denies any injury or trauma. Does report a lot of pushing and pulling while at work that aggravates the site. She denies any numbness or tingling. She voices no other concerns or complaints today Related Data Home Medications ?Medication ?Instructions ?Recorded ?Confirmed ?Last Taken ?Type stzizhro-vmawbw-rhtapgnl 300-1-0.5 1 cap PO DAILY 03/04/22 02/27/23 Unknown History mg(AM)/elagolix 300 mg(PM) capsules (Oriahnn) metformin 500 mg tablet 500 mg PO DAILY 07/08/22 02/27/23 Unknown History isoniazid 300 mg tablet mg 04/14/24 Unknown History metformin 500 mg tablet,extended mg PO 04/14/24 Unknown History release 24 hr rifapentine 150 mg tablet (Priftin) mg 04/14/24 Unknown History Allergies Allergy/AdvReac Type Severity Reaction Status Date / Time No Known Allergies Allergy Verified 04/14/24 15:25 Review of Systems 2 Review of Systems: All systems reviewed & are unremarkable except as noted in HPI and below Constitutional: Constitutional: Reports no additional constitutional complaints ENT: Reports system reviewed and no additional complaints, except as documented Cardiovascular: Cardiovascular: Reports no additional cardiovascular complaints Respiratory: Respiratory: Reports no additional respiratory complaints Gastrointestinal: Gastrointestinal: Reports no additional gastrointestinal complaints Musculoskeletal: Musculoskeletal: Reports no additional musculoskeletal complaints and Reports as per HPI [facility] Past Medical History Medical History delivery delivered COVID-20 March 2000 Smoker Tumor Benign on neck Uterine fibroid Surgical History Surgical History History of surgical removal of skin lesion Keloid removal related to , Tumor removed neck H/O section Family History Family History Father Alive and well Mother Lung cancer Social History Social History Years smoked: 20 Smoking status: Current every day smoker Tobacco type: cigarettes Second hand tobacco smoke exposure: No Alcohol intake: current Substance use: current Substance use type: crack/cocaine Living arrangements: with family Occupation/Education: occupation Gender identity (if verbalized by the patient): Female Sexual Orientation (if Verbalized by the Patient): Straight or Heterosexual Comments At the time of my signature, I reviewed and agree with the nursing past medical, surgical, social, and family history. There is no relevant family history pertinent to the patient complaint. Exam 2 Const: General: cooperative, no acute distress, alert and awake O rientation/consciousness: oriented to person, oriented to place and oriented to time HENMT: Head: normal to inspection Resp: Effort & Inspection: normal respiratory effort and able to speak in complete sentences Auscultation: clear to auscultation bilaterally, no crackles, no rales, no rhonchi and no wheezes Cardio: Palpation: normal PMI Rate: regular rate Rhythm: regular rhythm Heart sounds: S1 normal heart sound present and S2 normal heart sound present Skin: Full body images: 1. Palpable muscle spasm Neuro: General: oriented to person, oriented to place and oriented to time Cranial nerves: Yes CN's II-XII intact bilaterally Psych: Appearance: grossly normal Thought process: Normal thought process present Insight: Good insight present (Psych) Judgement: Good judgement present (Psych) Course Course Level of Care: Express Care Visit Vital Signs Vital signs: Vital Signs Temperature 97.0 F L 04/14/24 15:20 Pulse Rate 68 04/14/24 15:20 Respiratory Rate 15 04/14/24 15:20 Blood Pressure 132/88 04/14/24 15:20 Pulse Oximetry 100 04/14/24 15:20 Oxygen Delivery Room Air 04/14/24 15:20 Temperature 97.0 F L 04/14/24 15:20 Pulse Rate 68 04/14/24 15:20 Respiratory Rate 15 04/14/24 15:20 Blood Pressure 132/88 04/14/24 15:20 Pulse Oximetry 100 04/14/24 15:20 Oxygen Delivery Room Air 04/14/24 15:20 Reviewed MDM - Back Pain/Injury MDM Narrative Medical decision making narrative: Patient with palpable muscle spasm, right thoracic part of the pack. She has been taking ibuprofen. She reports that she has 800 mg ibuprofen at home which she would like to take. She was also prescribed cyclobenzaprine. She was advised not to drive while taking. She declines work note. Discharge instructions reviewed with patient, as well as provided in writing per nursing staff. The instructions also include specific and strict return/GO TO THE ER as well as f/u information. All questions have been answered, and the patient deny any further questions with discharge and discharge jason Some parts of this dictation were generated by voice recognition software and may contain typographical and/or grammatical inaccuracies. Differential Diagnosis Differential diagnosis: Likely lumbar radiculopathy and thoracic back pain Medical Records Attestation: I reviewed the patient's medical records. Discharge Plan Discharge Clinical Impression: Back pain Qualifiers: Back pain location: thoracic back pain Chronicity: acute Back pain laterality: right Qualified Code(s): M54.6 - Pain in thoracic spine Patient Disposition: Home, Self-Care Condition: Stable Instructions: Antibiotic Form, Back Pain (ED) Additional Instructions: Take medications as prescribed. Follow with primary care provider. Emergency department for new or worse symptoms Patient Language: Surinamese Prescriptions: New cyclobenzaprine 10 mg tablet 10 mg PO TID PRN (Reason: muscle spasm) Qty: 14 0RF No Action Oriahnn 300-1-0.5mg(AM) /300 mg(PM) capsule, sequential 1 cap PO DAILY metformin 500 mg tablet 500 mg PO DAILY Priftin 150 mg tablet isoniazid 300 mg tablet metformin 500 mg tablet extended release 24 hr PO Follow-up/Referrals: PHYSICIAN NOT ON STAFF,NONSTAFF [Primary Care Provider] - 2 Weeks Time of Disposition: 15:43
== END 2024-04-14 15:46 | disposition home or self-care (01) ==
PROVIDERS: Emergency Provider Nurse Practitioner Family
DX: M54.6 Pain in thoracic spine (principal); F17.210 Nicotine dependence, cigarettes, uncomplicated; Z79.899 Other long term (current) drug therapy; Z79.84 Long term (current) use of oral hypoglycemic drugs
CPT/HCPCS: 99213; G0463

== ENCOUNTER 2024-10-17 07:00 | Emergency (ER) | payer OTHER, SELFPAY ==
--- NOTE | ~2024-10-17 | XR_ITS ---
EXAMINATION: XR chest 2V DATE: 10/17/2024 08:02 INDICATION: Left-sided chest pain TECHNIQUE: PA and lateral views of the chest were obtained. COMPARISON: Chest radiograph dated 09/16/2020 FINDINGS: The lungs are clear with no focal airspace opacities, pulmonary edema, pleural effusion or pneumothor ax. The cardiomediastinal silhouette is normal. Visualized bones and soft tissues are unremarkable. IMPRESSION: 1. No acute cardiopulmonary disease. Reviewed, dictated and finalized at location A.
--- NOTE | 2024-10-17 07:01 | ECG_ITS ---
Test Date: 2024-10-17 07:16:23 Measurements Intervals [place] Rate: 86 P: 73 AR: 169 QRS: 52 QRSD: 92 T: 30 QT: 338 QTc: 404 Interpretive Statements SINUS RHYTHM POSSIBLE LEFT ATRIAL ENLARGEMENT BORDERLINE T WAVE ABNORMALITY- ANTERIOR LEADS BASELINE ARTIFACT- I, II, AVR, AVL, AVF BORDERLINE ECG No previous ECG available for comparison Electronically Signed On 10-17-2024 07:48:31 CDT by Dank Carey D.O.
--- OUTSIDE RECORDS SUMMARY | 2024-10-17 07:03 | XMS_ITS | Clinical Summary ---
Author Organization [facility] Address [address] [place] [id number] Care Team Providers Care Crime Lab Analyst Name Role Phone None, Provider MD Primary Care Provider Unavaila ble Social History Tobacco Use Types Packs/Day Years Used Date Smoking Tobacco: Never Assessed Comments Unknown Sex and Gender Information Value Date Recorded Sex Assigned at Not on file Legal Sex Female 10:57 AM CDT Gender Identity Not on file Sexual Orientation Not on file Plan of Treatment Health Maintenance Due Date Last Done Comments Cervical Cancer Screening Pa p Smear (Age 30 to 64) Every 3 Years 1979 Colorectal Cancer Screening Colonoscopy (10 Years) 1979 Annual Physical 06/13/1982 Hepatitis C 06/13/1997 Cervical Cancer Screening Pa p with HPV Testing (Age 30 to 64) Every 5 Years 06/13/2009 Cervical Cancer Screening wi th HPV 06/13/2009 Mammogram Screening 2019 COVID-19 Vaccine (3 - 2023-2 5 season) 2023 12/26/2020, 12/05/2020 DTaP, Tdap and Td Vaccines ( 3 - Td or Tdap) 03/22/2030 03/22/2020, 10/22/1994 Hepatitis B Vaccines Completed 05/19/2016, 01/18/2016, 11/16/2015 HPV Vaccines Completed 01/06/2020, 09/09/2019, 07/04/2019 Meningococcal B Vaccine Aged Out No l onger eligible based on patient's age to complete this topic Meningococcal Vaccine Aged Out No kal denise eligible based on patient's age to complete this topic Pneumococcal Vaccine: Pediatrics (0 to 5 Years) and At-Risk Patients (6 to 49 Years) Aged Out No longer eligible b ased on patient's age to complete this topic RSV Immunizations Under 20 Months Aged Out No longer eligible b ased on patient's age to complete this topic Insurance [facility] Care Teams Crime Lab Analyst Relationship Specialty Start Date End Date None, Provider, PCP - General 12/02/21
--- OUTSIDE RECORDS SUMMARY | 2024-10-17 07:03 | XMS_ITS | Encounter Summary ---
Author Organization [facility] Healthcare Address [address] [place] [address] Care Team Providers Care Keyseater Operator Name Role Phone Mathew Fountain MD Primary Care Provider [phone] Mathew Fountain MD Unavailable Darien Grossman MD Unavailable [phone] Kelly Chappell MD Unavailable [phone] Encounter Details Date Type Department Care Team (Late st Contact Info) Description 09/22/2022 Documentation [facility] OP Physical Therapy [address] [place] [id number] Gabrielle Elaine, PT Social History Tobacco Use Types Packs/Day Years Used Date Smoking Tobacco: Every Day Comments No Sex and Gender Information Value Date Recorded Sex Assigned at Not on file Legal Sex Female 3:38 AM INPATIENT SERVICES RN Gender Identity Not on file Sexual Orientation Not on file documented as of this encounter Plan of Treatment Not on file documented as of this encounter Visit Diagnoses Not on filedocumented in this encounter Care Teams Keyseater Operator Relationship Specialty Start Date End Date Mathew Fountain MD PCP - General Family Medicine 02/03/22 Mathew Fountain MD 02/03/22 Darien Grossman MD [address] [facility] [address] [place] [address] 04/27/20 Kelly Chappell MD [address] [facility] [address] [place] [address] Flame Planer 05/09/24 documented as of this encounter
--- OUTSIDE RECORDS SUMMARY | 2024-10-17 07:03 | XMS_ITS | Clinical Summary ---
Author Organization [facility] Address [address] [place] [address] Care Team Providers Care Rn Mobile Name Role Phone Mathew Fountain MD Primary Care Provider [phone] Mtahew Fountain MD Unavailable Darien Grossman MD Unavailable [phone] Kelly Chappell MD Unavailable [phone] Allergies No known active allergies Medications norethindrone (AYGESTIN) 5 mg tablet Take 5 mg by mouth daily 11/16/2020 Active metFORMIN (GLUCOPHAGE) 500 mg tablet Take 500 mg by mouth 2 (two) times a day with meals 11/16/2020 Active cabergoline (DOSTINEX) 0.5 mg tablet Take 0.5 mg by mouth 2 (two) times a week 11/09/2020 Active HYDROcodone-naresh taminophen (NORCO) 5-325 mg per tabletIndicatio ns:Pain,post op pain Take 1-2 tablets by mouth every 4 (four) hours as needed for pain 30 tablet 01/30/2021 Active Active Problems Problem Noted Date Diagnosed Date Right carpal tunnel syndrome 12/13/2020 Right wrist pain 12/13/2020 Right hand pain 12/13/2020 Surgical History Surgery Date Site/Laterality Comments SECTION CARPAL TUNNEL RELEASE Right Medical History Medical History Date Comments Hypercholesteremia Type 2 diabetes mellitus pre-di abetic takes metformin Family History Medical History Relation Name Comments Arthritis Father Cancer Mother Relation Name Status Comments Father Mother Social History Tobacco Use Types Packs/Day Years Used Date Smoking Tobacco: Every Day Comments No Sex and Gender Information Value Date Recorded Sex Assigned at Not on file Legal Sex Female 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 Gender Identity Not on file Sexual Orientation Not on file Obstetrics History Last Filed Vital Signs Vital Sign Reading Time Taken Comments Blood Pressure 99/71 09/22/2021 12:20 AM CDT Pulse 108 09/22/2021 12:20 AM CDT Temperature 36.4 C (97.5 F) 09/22/2021 12:20 AM CDT Respiratory Rate 20 09/22/2021 12:20 AM CDT Oxygen Saturation 96% 09/22/2021 12:20 AM CDT Inhaled Oxygen Concentration - - Weight 82.3 kg (181 lb 8 oz) 01/31/2021 6:10 AM SENIOR PRINCIPAL SOFTWARE ENGINEER Height 161.3 cm (5' 3.5) 01/31/2021 6:10 AM SENIOR PRINCIPAL SOFTWARE ENGINEER Body Mass Index 31.65 01/31/2021 6:10 AM SENIOR PRINCIPAL SOFTWARE ENGINEER Plan of Treatment Health Maintenance Due Date Last Done Comments Breast Cancer Screening-Mammogram 1979 Cervical Cancer Screening 1979 Colon Cancer Screening-Colonoscopy 1979 Depression Screening 1979 Hepatitis C Screening 1979 Varicella Vaccines (1 of 2 - 13+ 2-dose series) 06/13/1992 Regular Well Visit/Exam 18-64 06/13/1997 Pneumococcal vaccine <65 (1 of 2 - PCV) 06/13/1998 Influenza Vaccine (#1) 2024 03/22/2020, 2015 DTaP/Tdap/Td Vaccine (2 - Td or Tdap) 03/22/2030, 10/22/1994 Hepatitis B Screening Completed 05/19/2016 , 01/18/2016, 11/16/2015 HPV Vaccines Completed 01/06/2020, 08/30, 07/04/2019 Insurance [facility] Care Teams Rn Mobile Relationship Specialty Start Date End Date Mathew Fountain MD PCP - General Family Medicine 02/03/22 Mathew Fountain MD 02/03/22 Darien Grossman MD [address] [facility] [address] [place] [address] 04/27/20 Kelly Chappell MD [address] [facility] [address] [place] [address] Cook Fry 05/09/24
--- OUTSIDE RECORDS SUMMARY | 2024-10-17 07:03 | XMS_ITS | Clinical Summary ---
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 Gender Identity Not on file Sexual Orientation Not on file Plan of Treatment Health Maintenance Due Date Last Done Comments Hepatitis C Virus (HCV) Screening 1979 TdaP Immunization 1979 Pap Smear 06/13/2000 Cervical Cancer Screening (CCS) 06/13/2009 HPV/Cotest 06/13/2009 SARS-COV-2 Immunization ( season) 2023 12/26/2020, 12/05/2020 Cologuard 06/13/2024 Colonoscopy 06/13/2024 Colorectal Cancer Screening 06/13/2024 Immunochemical Fecal Occult Blood 06/13/2024 Influenza Immunization (#1) 2024 Respiratory Syncytial Virus (RSV) Immunization (Adult) (1 - 1-dose 75+ series) 06/13/2054 DTaP/Tdap/Td Immunization Discontinued 10/22/1994 Hepatitis B Immunization Completed 017, 01/18/2016, 11/16/2015 Human Papillomavirus (HPV) Immunization Completed 01/06/2020, 09/09/2019, 07/04/2019 Meningococcal Immunization (ACWY) Aged Out No longer eligible based on patient's age to complete this topic Pneumococcal Immunization Combined Aged Out No longer eligible based on patient's age to complete this topic Rotavirus Immunization Aged Out No lo nger eligible based on patient's age to complete this topic
[2024-10-17 07:22] VITALS: O2SAT 100
[2024-10-17 07:23] VITALS: BP 134/91; PULSE 89; RESP 16; O2SAT 100
[2024-10-17 07:37] LABS: Hematocrit 42.1 % (37.0-47.0); Hemoglobin 13.6 g/dL (12.0-15.0); Immature Granulocyte Percent A 0.3 % (0-0.5); Lymphocytes Absolute Auto 2.94 K/mm3 (0.9-3.2); Mean Corpuscular HGB Conc 32.3 g/dl (32-36); Mean Corpuscular Hemoglobin 30.4 pg (26-34); Mean Corpuscular Volume 94.0 fl (80-100); Nucleated Red Blood Cells Absolute Auto 0.000 K/mm3 (0.0-0.012); Nucleated Red Blood Cells Perc 0.0 % (0.0-0.2); Platelet Count Result 305 k/mm3 (150-375); Red Blood Count 4.48 M/mm3 (4.2-5.4); White Blood Count 5.9 K/mm3 (4.5-10.0)
[2024-10-17 07:47] LABS: Alanine Aminotransferase 60 U/L (6-35); Albumin Level 4.6 g/dL (3.5-5.1); Alkaline Phosphatase 46 U/L (38-126); Anion Gap 13 mmol/L (4-12); Aspartate Amino Transferase 52 U/L (14-36); Bilirubin,Total 0.5 mg/dL (0.2-1.3); Blood Urea Nitrogen 8 mg/dL (7-17); Calcium 9.2 mg/dL (8.4-10.2); Carbon Dioxide 23 mmol/L (22-30); Chloride 104 mmol/L (98-107); Estimated CRCL calculation 70 ml/min; Estimated Glomerular Filt Rate > 60; Glucose 116 mg/dL (65-110); Lipase 62 U/L (23-300); Potassium 3.6 mmol/L (3.4-5.0); Sodium 140 mmol/L (137-145); Total Protein 7.5 g/dL (6.3-8.2)
[2024-10-17 07:49] LABS: INR 1.0; Partial Thromboplastin Time 29.8 Seconds (22.3-36.8); Prothrombin Time 13.3 Seconds (11.1-14.7)
[2024-10-17] MEDS: PANTOPRAZOLE SODIUM IV 40 MG VIAL IV PUSH (07:49)
[2024-10-17] MEDS: KETOROLAC 15 MG/ML VIAL (*BKC) IV PUSH (07:49)
[2024-10-17 07:59] LABS: Troponin I < 0.012 ng/mL (0.000-0.034)
--- OUTSIDE RECORDS SUMMARY | 2024-10-17 08:17 | XMS_ITS | Clinical Summary ---
Author Organization [facility] Care Team Providers Care Rn Hematology Name Role Phone Unavailable Primary Care Provider Unavailabl e Social History Tobacco Use Types Packs/Day Years Used Date Smoking Tobacco: Never Assessed Comments Unknown Sex and Gender Information Value Date Recorded Sex Assigned at Not on file Legal Sex Female 10:10 AM PHP DEVELOPER Gender Identity Not on file Sexual Orientation [...]
--- OUTSIDE RECORDS SUMMARY | 2024-10-17 08:17 | XMS_ITS | Encounter Summary ---
Author Organization [facility] Healthcare Address [address] [place] [address] Care Team Providers Care Locker Room Clerk Name Role Phone Mathew Fountain MD Primary Care Provider [phone] Mathew Fountain MD Unavailable Darien Grossman MD Unavailable [phone] Kelly Chappell MD Unavailable [phone] Encounter Details Date Type Department Care Team (Late st Contact Info) Description 09/22/2022 Documentation [facility] OP Physical Therapy [address] [place] [id number] Gabrielle Elaine, PT Social History Tobacco Use Types Packs/Day Years Used Date Smoking Tobacco: Every Day Comments No Sex and Gender Information Value Date Recorded Sex Assigned at Not on file Legal Sex Female 3:38 AM 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 PRESS 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
--- OUTSIDE RECORDS SUMMARY | 2024-10-17 08:17 | XMS_ITS | Clinical Summary ---
Author Organization [facility] Address [address] [place] [address] Care Team Providers Care Electromedical Equipment Technician Name Role Phone Mathew Fountain MD Primary Care Provider [phone] Mathew Fountain MD Unavailable Darien Grossman MD Unavailable [phone] Kelly Chappell MD Unavailable [phone] Allergies No known active allergies Medications norethindrone [...] on file Legal Sex Female 3:38 AM CAFE HELPER Gender Identity Not on file Sexual Orientation [...] (181 lb 8 oz) 01/31/2021 6:10 AM CAFE HELPER Height 161.3 cm (5' 3.5) 01/31/2021 6:10 AM CAFE HELPER Body Mass Index 31.65 01/31/2021 6:10 AM CAFE HELPER Plan of Treatment Health Maintenance Due Date [...] Completed 01/06/2020, 08/30, 07/04/2019 Insurance [facility] Care Teams Electromedical Equipment Technician Relationship Specialty Start Date End Date Mathew Fountain MD PCP - General Family Medicine 02/03/22 Mathew Fountain MD 02/03/22 Darien Grossman MD [address] [facility] [address] [place] [address] 04/27/20 Kelly Chappell MD [address] [facility] [address] [place] [address] Trailhead Construction Worker 05/09/24
--- NOTE | 2024-10-17 08:51 | ED.CHESTPAIN ---
HPI - Chest Pain General Chief Complaint: Chest Pain Stated Complaint: chest pain Time Seen by Provider: 10/17/24 07:34 Source: patient, RN notes reviewed and old records reviewed Mode of arrival: ambulatory Limitations: no limitations History of Present Illness HPI narrative: This is a 44 year old female with history of DM wh0 presents for evaluation of left chest pain. PAtient reports she has been having intermittent left chest pain for 4 days. She reports pain to left breast, left axilla and left back. SHe reports pain is worse with palpation and movement of her body. She has not taken any medication or treatment for her pain. She denies associated nausea, vomiting, fever, cough, shortness of breath, calf pain, swelling. She does admit to smoking cigarettes and drinking alcohol daily. She denies history of alcohol withdrawal. She denies cardiac history. MD complaint: chest pain Related Data Home Medications ?Medication ?Instructions ?Recorded ?Confirmed ?Last Taken ?Type pajqwsou-jrlbtw-[id number] 300-1-0.5 1 cap PO DAILY 03/04/22 10/17/24 Unknown History mg(AM)/elagolix 300 mg(PM) capsules (Oriahnn) metformin 500 mg tablet 500 mg PO DAILY 07/08/22 02/27/23 Unknown History isoniazid 300 mg tablet mg 04/14/24 Unknown History metformin 500 mg tablet,extended mg PO 04/14/24 Unknown History release 24 hr rifapentine 150 mg tablet (Priftin) mg 04/14/24 Unknown History Allergies Allergy/AdvReac Type Severity Reaction Status Date / Time No Known Allergies Allergy Verified 10/17/24 07:03 [facility] Past Medical History Medical History Smoker COVID-20 March 2000 Tumor Benign on neck delivery delivered Uterine fibroid Surgical History Surgical History History of surgical removal of skin lesion Keloid removal related to , Tumor removed neck H/O section Family History Family History Father Alive and well Mother Lung cancer Social History Social History Years smoked: 20 Smoking status: Current every day smoker Tobacco type: cigarettes Second hand tobacco smoke exposure: No Alcohol intake: current Substance use: current Substance use type: crack/cocaine Living arrangements: with family Occupation/Education: occupation Gender identity (if verbalized by the patient): Female Sexual Orientation (if Verbalized by the Patient): Straight or Heterosexual Exam Const: General: no acute distress and alert Nutritional Appearance: well nourished and obese Orientation/consciousness: patient oriented x3 HENMT: Head: normal to inspection Mouth: Yes Normal oral and palatal mucosa present and Yes lip normal Eyes: EOM: EOMs intact bilaterally Chest: Chest palpation & inspection: tenderness (reproducible tenderness pain on palpation left breath) Resp: Effort & Inspection: normal respiratory effort Auscultation: clear to auscultation bilaterally Cardio: Rate: regular rate Rhythm: regular rhythm Heart sounds: no murmurs GI: GI Palp: Yes Soft to palpation, No Tenderness to palpation present (GI), No Guarding due to palpation present (GI) and No Rigid due to palpation Auscultation: normal bowel sounds Back/Spine/Pelvis: Back: no CVA tenderness Skin: Rashes: no rashes Wounds: no wounds Neuro: General: patient oriented x3, moves all extremities and CN's II-XI intact bilaterally Extrem: General: normal to inspection Psych: Mental Status: mental status grossly normal Affect: normal affect Attitude: cooperative Course Reevaluation(s) Reevaluation #1: Patient has appointment with PCP this afternoon so she will follow up . Her pain seems more muscular than cardiac. She understands she may still need additional testing. Will treat with muscle relaxer. Date: 10/17/24 Time: 08:59 Vital Signs Vital signs: Vital Signs Pulse Oximetry 100 10/17/24 07:22 Oxygen Delivery Room Air 10/17/24 07:22 Pulse Rate 79 10/17/24 09:07 Respiratory Rate 18 10/17/24 09:07 Blood Pressure 136/92 H 10/17/24 09:07 Pulse Oximetry 100 10/17/24 09:07 Oxygen Delivery Room Air 10/17/24 07:22 MDM - Chest Pain Differential Diagnosis Differential diagnosis: Likely fracture of rib, pneumothorax, stable angina, unstable angina pectoris, atypical chest pain, costochondritis and chest pain Lab Data Attestation: I reviewed the patient's lab results. 10/17/24 07:27 10/17/24 07:27 Labs: Lab Results 10/17/24 Range/Units 07:27 WBC 5.9 (4.5-10.0) K/mm3 RBC 4.48 (4.2-5.4) M/mm3 Hgb 13.6 (12.0-15.0) g/dL Hct 42.1 (37.0-47.0) % MCV 94.0 (80-100) fl MCH 30.4 (26-34) pg MCHC 32.3 (32-36) g/dl RDW 12.7 (11.5-14.5) % Plt Count 305 (150-375) k/mm3 MPV 9.5 (7.4-10.4) fl Immature Gran % (Auto) 0.3 (0-0.5) % Neut % (Auto) 39.3 L (45.5-73.1) % Lymph % (Auto) 49.6 H (18.3-44.2) % [place] % (Auto) 7.6 (2.6-8.5) % Eos % (Auto) 2.7 (0-4.4) % Baso % (Auto) 0.5 (0.2-1.2) % Lymph # (Auto) 2.94 (0.9-3.2) K/mm3 [place] # (Auto) 0.5 (0.1-0.6) K/mm3 Eos # (Auto) 0.2 (0-0.3) K/mm3 Baso # (Auto) 0.0 (0.0-0.1) K/mm3 Abs Immat Gran (auto) 0.02 (0.00-0.031) K/mm3 Absolute Neuts (auto) 2.3 (1.3-6.7) K/mm3 Absolute Nucleated RBC 0.000 (0.0-0.012) K/mm3 Nucleated RBC % 0.0 (0.0-0.2) % PT 13.3 (11.1-14.7) Seconds INR 1.0 APTT 29.8 (22.3-36.8) Seconds D-Dimer < 0.27 (<0.48) ug/mL Sodium 140 (137-145) mmol/L Potassium 3.6 (3.4-5.0) mmol/L Chloride 104 (98-107) mmol/L Carbon Dioxide 23 (22-30) mmol/L Anion Gap 13 H (4-12) mmol/L BUN 8 D (7-17) mg/dL Creatinine 0.93 (0.7-1.0) mg/dL Estim Creat Clear Calc 70 ml/min Estimated GFR > 60 (59 - ) Glucose 116 H (65-110) mg/dL Calcium 9.2 (8.4-10.2) mg/dL Total Bilirubin 0.5 (0.2-1.3) mg/dL AST 52 H (14-36) U/L ALT 60 H (6-35) U/L Alkaline Phosphatase 46 (38-126) U/L Troponin I < 0.012 (0.000-0.034) ng/mL Total Protein 7.5 (6.3-8.2) g/dL Albumin 4.6 (3.5-5.1) g/dL Lipase 62 (23-300) U/L Imaging Data Radiologist's impression: ITS Impressions Chest X-Ray 10/17/24 08:22 IMPRESSION: 1. No acute cardiopulmonary disease. ECG Data EKG #1: Attestation: I personally reviewed and interpreted this ECG as follows: ECG completion date: 10/17/24 ECG completion time: 07:16 EKG Interpretation: normal rate (86), sinus rhythm, no ST changes, normal QT and NL axis Discharge Plan Discharge Clinical Impression: Atypical chest pain Patient Disposition: Home Condition: Stable Instructions: Antibiotic Form, Chest Pain (ED), Chest Wall Pain (ED) Additional Instructions: Follow up with your primary care provider. Return to ER if symptoms worsen. Patient Language: Spanish Prescriptions: New cyclobenzaprine 10 mg tablet 10 mg PO BID PRN (Reason: muscle spasm) Qty: 14 0RF No Action Oriahnn 300-1-0.5mg(AM) /300 mg(PM) capsule, sequential 1 cap PO DAILY metformin 500 mg tablet 500 mg PO DAILY Priftin 150 mg tablet isoniazid 300 mg tablet metformin 500 mg tablet extended release 24 hr PO cyclobenzaprine 10 mg tablet 10 mg PO TID PRN (Reason: muscle spasm) Qty: 14 0RF Follow-up/Referrals: UNKNOWN,DOCTOR [Primary Care Provider] - Stand Alone Forms: Work/School Release IP Quality HEART score for chest pain patients History: slightly suspicious ECG: normal Age: < or = to 45 years Risk factors: 1 or 2 risk factors Troponin: < or = to 1x normal limit Heart score: 1
[2024-10-17 09:07] VITALS: BP 136/92; PULSE 79; RESP 18; O2SAT 100
== END 2024-10-17 09:18 | disposition home or self-care (01) ==
PROVIDERS: Student in an Organized Health Care Education/Training Program; Emergency Provider General Practice
DX: R07.89 Other chest pain (principal); F17.210 Nicotine dependence, cigarettes, uncomplicated
CPT/HCPCS: 36415; 71046; 80053; 83690; 84484; 85025; 85380; 85610; 85730; 93005; 96374; 96375; 99284; J1885; J2470